=== PATIENT | male | born 1985 | race Caucasian/White ===

== ENCOUNTER 2021-05-18 03:04 | Emergency (ER) | payer SELFPAY ==
[~2021-05-18] VITALS: Ht 175.3 cm; Wt 87.0 kg
[2021-05-18] MEDS ORDERED: ONDANSETRON HCL 4MG/2ML INJ IV STA (03:12)
[2021-05-18] MEDS ORDERED: SODIUM CHLORIDE 0.9% 1,000 ML IV ONE (03:15)
[2021-05-18] MEDS ORDERED: LORAZEPAM 2MG/ML CPJ IV ONE (03:15)
[2021-05-18 03:30] VITALS: BP 116/47
== END 2021-05-18 05:00 | disposition left against medical advice (07) ==
LOC: ER 03:12
DX: R45.1 Restlessness and agitation (principal); R41.82 Altered mental status, unspecified; Z78.1 Physical restraint status
CPT/HCPCS: 99291; J7030